=== PATIENT | male | born 2000 | race Asian ===

== ENCOUNTER 2024-01-14 00:35 | Emergency (ER) | payer OTHER ==
[2024-01-14] MEDS ORDERED: Albuterol/Ipratropium 3.0-0.5 MG/3 ML Neb Soln ONE (01:08)
[2024-01-14] MEDS: tiZANidine 4 MG Tab PO STA (01:13)
[2024-01-14] MEDS: Albuterol/Ipratropium 3.0-0.5 MG/3 ML Neb Soln NEB ONE (01:13)
== END 2024-01-14 01:30 | disposition home or self-care (01) ==
LOC: FB.ED 00:35
DX: M62.830 Muscle spasm of back (principal); F17.210 Nicotine dependence, cigarettes, uncomplicated; V49.50XA Passenger injured in collision with unspecified motor vehicles in traffic accident, initial encounter
CPT/HCPCS: 99283; 99284; A9270-GY; J7620